=== PATIENT | male | born 1950 | race Caucasian/White ===

== ENCOUNTER 2019-03-31 07:48 | Day surgery (SDC) | payer MEDICARE ==
[~2019-03-31] VITALS: Ht 167.6 cm; Wt 92.2 kg
[2019-03-31] VITALS (9 sets, daily range): BP systolic 115–134; BP diastolic 68–91
[2019-03-31] MEDS ORDERED: diphenhydrAMINE 25mg capsule PO PRN (08:10)
[2019-03-31] MEDS ORDERED: normal saline 1,000 ML IV SCH (08:10)
[2019-03-31] MEDS ORDERED: FLO0.4C PO (08:15)
[2019-03-31] MEDS ORDERED: TRAZ-219 PO (08:15)
[2019-03-31] MEDS ORDERED: OXYC10TA86 PO (08:15)
[2019-03-31] MEDS ORDERED: EZET10TA21 PO (08:15)
[2019-03-31] MEDS ORDERED: LEVO25TA2 PO (08:15)
[2019-03-31] MEDS ORDERED: TEST200V10 IM (08:15)
[2019-03-31] MEDS ORDERED: SUCR1TAB34 PO (08:15)
[2019-03-31] MEDS ORDERED: DULO20CA50 PO (08:15)
[2019-03-31] MEDS ORDERED: CARV-50 PO (08:15)
[2019-03-31] MEDS ORDERED: FURO40TA4 PO (08:15)
[2019-03-31] MEDS ORDERED: ROSU40TA PO (08:15)
[2019-03-31] MEDS ORDERED: POTA10TA19 PO (08:15)
[2019-03-31] MEDS ORDERED: ASPI81TA52 PO (08:15)
[2019-03-31 08:42] LABS: BASOPHILS % (AUTO) 0.9 % (0-1); EOSINOPHILS # (AUTO) 0.1 X10'3 (0-0.9); EOSINOPHILS % (AUTO) 2.1 % (0-6); HEMATOCRIT 51.6 % (42.0-52.0); HEMOGLOBIN 17.5 g/dl (14.0-17.9); LYMPHOCYTES # (AUTO) 0.9 X10'3 (1.1-4.8); LYMPHOCYTES % (AUTO) 16.3 % (21-51); MEAN CORPUSCULAR HEMOGLOBIN 32.1 PG (27.0-31.0); MEAN CORPUSCULAR HGB CONC 33.9 g/dL (33.0-36.5); MEAN CORPUSCULAR VOLUME 94.7 FL (78-98); MEAN PLATELET VOLUME 8.3 FL (7.4-10.4); MONOCYTES # (AUTO) 0.7 X10'3 (0-0.9); MONOCYTES % (AUTO) 12.8 % (2-12); NEUTROPHILS # (AUTO) 3.8 X10'3 (1.8-7.7); NEUTROPHILS % (AUTO) 67.9 % (42-75); PLATELET COUNT 221 X10'3 (140-440); RED BLOOD COUNT 5.45 X10'6 (4.70-6.10); RED CELL DISTRIBUTION WIDTH 14.9 % (11.5-14.5); WHITE BLOOD COUNT 5.5 X10'3 (4.5-11.0)
[2019-03-31 08:50] LABS: ALBUMIN 3.7 G/DL (3.4-5.0); ANION GAP 8 (8-16); BLOOD UREA NITROGEN 12 MG/DL (7-18); BUN/CREATININE RATIO 9.7 (5.4-32.0); CALCIUM 8.7 MG/DL (8.5-10.1); CHLORIDE 106 MMOL/L (99-107); CREATININE 1.24 MG/DL (0.60-1.10); GLUCOSE 93 MG/DL (70-104); POTASSIUM 3.8 MMOL/L (3.5-5.1); SODIUM 142 MMOL/L (135-145); TOTAL CARBON DIOXIDE 28.2 MMOL/L (24-32); eGFR 58 ML/MIN
[2019-03-31] MEDS ORDERED: midazolam 2 mg/2 ml injection ONE ×2 (09:03→09:38)
[2019-03-31] MEDS ORDERED: iohexol 350 MG/ML 50ML vial IV ONE (09:04)
[2019-03-31] MEDS ORDERED: LIDOcaine 1% (10mg/ml)w/preservative injection 20ml MDV ONE (09:04)
[2019-03-31] MEDS ORDERED: iohexol 350MG/ML 100ml bottle IV ONE (09:04)
[2019-03-31] MEDS ORDERED: fentaNYL/PF 50MCG/1 ML 2ML syringe ONE (09:04)
[2019-03-31] MEDS ORDERED: normal saline 1000ml 1,000 ML IV SCH (10:20)
== END 2019-03-31 13:35 | disposition home or self-care (01) ==
LOC: SSTAY O 07:48
PROVIDERS: ATTEND Internal Medicine Cardiovascular Disease
DX: R94.39 Abnormal result of other cardiovascular function study (principal); R07.9 Chest pain, unspecified; T82.855A Stenosis of coronary artery stent, initial encounter; I25.118 Atherosclerotic heart disease of native coronary artery with other forms of angina pectoris; I25.2 Old myocardial infarction; E78.5 Hyperlipidemia, unspecified; I10 Essential (primary) hypertension; I49.5 Sick sinus syndrome; K21.9 Gastro-esophageal reflux disease without esophagitis; E03.9 Hypothyroidism, unspecified; Z95.0 Presence of cardiac pacemaker; Z72.89 Other problems related to lifestyle; Z98.890 Other specified postprocedural states; Z88.8 Allergy status to other drugs, medicaments and biological substances; Z79.899 Other long term (current) drug therapy; Y83.8 Other surgical procedures as the cause of abnormal reaction of the patient, or of later complication, without mention of misadventure at the time of the procedure; Y92.89 Other specified places as the place of occurrence of the external cause
CPT/HCPCS: 36415; 80048; 83735; 85025; 85610; 93458; 99152; C1894; J1644; J2001; J2250; J3010; J7030; Q0163; Q9967; 93005; A4620; A6258; C1760